=== PATIENT | female | born 1980 | race Hispanic/Latino ===

== ENCOUNTER 2018-02-13 14:19 | Emergency (ER) | payer MEDICAID, OTHER | END 2018-02-13 15:19 | disposition home or self-care (01) | LOC: ERS 14:19 | DX: R04.0 Epistaxis (principal); F41.9 Anxiety disorder, unspecified | CPT/HCPCS: 99283 ==

== ENCOUNTER 2018-06-20 10:18 | Emergency (ER) | payer OTHER ==
[2018-06-20 10:59] LABS: #Eosinphils 0.2 thou/uL (0.0-0.7); #Lymphocytes 1.8 thou/uL (1.20-3.40); #Monocytes 0.5 thou/uL (0.11-0.59); #Neutrophils 3.9 thou/uL (1.40-6.50); %Basophils 0.7 % (0.0-1.0); %Eosinophils 3.4 % (0.0-10.0); %Lymphocytes 28.4 % (21.0-51.0); %Monocytes 7.6 % (0.0-10.0); %Neutrophils 59.9 % (42.0-75.0); Hemoglobin 15.5 g/dL (12.0-16.0); Mean Corpuscular HGB CONC 34.5 g/dL (32.0-36.0); Mean Corpuscular Hemoglobin 31.4 pg (27.0-31.0); Mean Platelet Volume 8.4 fL (7.4-10.4); Platelet Count 225 thou/uL (130-400); RBC Distribution Width 12.3 % (11.5-14.5); Red Blood Cell (RBC) Count 4.93 mill/uL (4.20-5.40); White Blood Cell (WBC) Count 6.4 thou/uL (4.8-10.8)
[2018-06-20 11:19] LABS: ALT (SGPT) 57 U/L (8-55); AST (SGOT) 35 U/L (5-34); Albumin 4.2 g/dL (3.5-5.0); Alkaline Phosphatase 69 U/L (40-150); Anion Gap 12 mmol/L (10-20); BUN (Urea Nitrogen) 9 mg/dL (7.0-18.7); Bilirubin, Total 0.4 mg/dL (0.2-1.2); Calc. Creatinine Clearance 0 mL/min (70-130); Calcium 9.2 mg/dL (7.8-10.44); Carbon Dioxide 20 mmol/L (22-29); Chloride 109 mmol/L (98-107); Estimated GFR-MDRD 66; Globulin 3.2 g/dL (2.4-3.5); Glucose 143 mg/dL (70-105); Lipase 27 U/L (8-78); Potassium 3.6 mmol/L (3.5-5.1); Protein, Total 7.4 g/dL (6.0-8.3); Sodium 137 mmol/L (136-145)
[2018-06-20 11:23] LABS: CKMB 1.3 ng/mL (0-6.6); Troponin I Less than 0.010 ng/mL (< 0.028)
--- NOTE | 2018-06-20 11:33 | RAD ---
PORTABLE CHEST 1 VIEW: Date: 06/20/18 Time: 1050 hours HISTORY: Shortness of breath and chest pain. FINDINGS: The heart size is normal. The lungs are expanded without focal areas of consolidation, pneumothoraces , or pleural effusions. There is suggestion of a granuloma in the right mid lung. IMPRESSION: 1. No acute process. 2. Probable granuloma in right mid lung. Recommend follow-up chest radiograph in [address] CODE T. POS: [facility]
[2018-06-20] MEDS ORDERED: Lidocaine Viscous Sol 2% 15 ml UD Cup ONE (12:04)
[2018-06-20] MEDS ORDERED: Mag-Al 1200 mg/1200 mg/30 ML UDCUP ONE (12:04)
--- NOTE | 2018-06-23 13:25 | EKG ---
Test Reason : Blood Pressure : / mmHG Vent. Rate : 063 BPM Atrial Rate : 063 BPM P-R Int : 124 ms QRS Dur : 090 ms QT Int : 420 ms P-R-T Axes : -24 041 036 degrees QTc Int : 429 ms Normal sinus rhythm Normal ECG Confirmed by YANETH DOBSON ([id number]), supervising film or videotape editor LINCOLN JACOBO ([id number] on 06/23/2018 1:24:26 PM Referred By: Confirmed By:YANETH DOBSON
== END 2018-06-20 13:29 | disposition home or self-care (01) ==
LOC: ERS 10:18
DX: R07.89 Other chest pain (principal); F41.9 Anxiety disorder, unspecified; F17.210 Nicotine dependence, cigarettes, uncomplicated
CPT/HCPCS: 36415; 71045; 80053; 82553; 83690; 84484; 85025; 93005

== ENCOUNTER 2018-10-21 21:52 | Emergency (ER) | payer OTHER ==
[2018-10-21] MEDS ORDERED: Methocarbamol 1 GM in Sodium Chloride 0.9% 250 ML 250 ML IVPB SCH (23:00)
[2018-10-21 23:01] LABS: #Eosinphils 0.5 thou/uL (0.0-0.7); #Lymphocytes 2.4 thou/uL (1.20-3.40); #Monocytes 0.6 thou/uL (0.11-0.59); #Neutrophils 3.5 thou/uL (1.40-6.50); %Basophils 0.7 % (0.0-1.0); %Lymphocytes 33.6 % (21.0-51.0); %Monocytes 9.1 % (0.0-10.0); %Neutrophils 49.6 % (42.0-75.0); Hemoglobin 14.9 g/dL (12.0-16.0); Mean Corpuscular HGB CONC 33.3 g/dL (32.0-36.0); Mean Corpuscular Hemoglobin 30.2 pg (27.0-31.0); Mean Corpuscular Volume 90.9 fL (78.0-98.0); Mean Platelet Volume 8.6 fL (7.4-10.4); Platelet Count 192 thou/uL (130-400); RBC Distribution Width 12.4 % (11.5-14.5); Red Blood Cell (RBC) Count 4.94 mill/uL (4.20-5.40)
[2018-10-21 23:06] LABS: BHCG - Serum Negative (NEGATIVE); Pregs Control Background? CLEAR/WHITE (CLR/WHITE); Pregs Control Bar Appear? YES (CONTROL BAR)
[2018-10-21 23:14] LABS: ALT (SGPT) 83 U/L (8-55); AST (SGOT) 57 U/L (5-34); Albumin 4.1 g/dL (3.5-5.0); Alkaline Phosphatase 80 U/L (40-150); Anion Gap 12 mmol/L (10-20); BUN (Urea Nitrogen) 11 mg/dL (7.0-18.7); Bilirubin, Total 0.4 mg/dL (0.2-1.2); CK (CPK) 156 U/L (29-168); Calc. Creatinine Clearance 0 mL/min (70-130); Carbon Dioxide 24 mmol/L (22-29); Chloride 105 mmol/L (98-107); Estimated GFR-MDRD 71; Globulin 2.9 g/dL (2.4-3.5); Glucose 127 mg/dL (70-105); Potassium 3.8 mmol/L (3.5-5.1); Sodium 137 mmol/L (136-145)
[2018-10-22] MEDS ORDERED: Ketorolac Tromethamine 30 MG/ML VIAL ONE (00:10)
== END 2018-10-22 01:32 | disposition home or self-care (01) ==
LOC: ERS 21:52
DX: M54.5 Low back pain (principal); F41.9 Anxiety disorder, unspecified
CPT/HCPCS: 80053; 82550; 84703; 85025; 96361; 96365; 96366; 96375; J1885; J2800; J7050

== ENCOUNTER 2020-03-05 12:02 | Emergency (ER) | payer OTHER ==
[2020-03-06 14:26] LABS: SARS-CoV-2 MS2 Positive; SARS-CoV-2 N Gene Negative; SARS-CoV-2 S Gene Negative; SARS-CoV-2 orf1ab Negative
== END 2020-03-05 12:57 | disposition home or self-care (01) ==
LOC: ERS 12:02
DX: R09.81 Nasal congestion (principal); R05 Cough; R59.0 Localized enlarged lymph nodes; F41.9 Anxiety disorder, unspecified; Z20.828 Contact with and (suspected) exposure to other viral communicable diseases
CPT/HCPCS: 87635; 99283; U0003

== ENCOUNTER 2020-03-24 11:47 | Emergency (ER) | payer OTHER ==
[2020-03-25 12:50] LABS: SARS-CoV-2 MS2 Positive; SARS-CoV-2 N Gene Positive; SARS-CoV-2 S Gene Positive; SARS-CoV-2 orf1ab Positive
== END 2020-03-24 13:25 | disposition home or self-care (01) ==
LOC: ERS 11:47
DX: U07.1 COVID-19 (principal); F41.9 Anxiety disorder, unspecified
CPT/HCPCS: 87635; 99283; U0003

== ENCOUNTER 2020-04-08 09:27 | Emergency (ER) | payer OTHER ==
[2020-04-08 19:58] LABS: SARS-CoV-2 MS2 Positive; SARS-CoV-2 N Gene Negative; SARS-CoV-2 S Gene Negative; SARS-CoV-2 orf1ab Negative
== END 2020-04-08 10:11 | disposition home or self-care (01) ==
LOC: ERS 09:27
DX: Z20.828 Contact with and (suspected) exposure to other viral communicable diseases (principal); F41.9 Anxiety disorder, unspecified
CPT/HCPCS: 87635; 99283; U0003

== ENCOUNTER 2020-10-20 09:05 | Emergency (ER) | payer OTHER ==
[2020-10-20] MEDS ORDERED: Acetaminophen 500 MG TAB ONE (10:56)
[2020-10-20 14:18] LABS: SARS-CoV-2 PCR by NAA Not Detected (NotDetected)
== END 2020-10-20 11:00 | disposition home or self-care (01) ==
LOC: ERS 09:05
DX: R51.9 Headache, unspecified (principal); R19.7 Diarrhea, unspecified; Z20.822 Contact with and (suspected) exposure to COVID-19
CPT/HCPCS: 87635; 99284; U0003; U0005

== ENCOUNTER 2020-12-02 16:47 | Emergency (ER) | payer OTHER | END 2020-12-02 18:48 | disposition home or self-care (01) | LOC: ERS 16:47 | DX: R51.9 Headache, unspecified (principal); R04.0 Epistaxis | CPT/HCPCS: 99283 ==

== ENCOUNTER 2021-08-09 20:53 | Emergency (ER) | payer OTHER ==
[2021-08-09 21:54] LABS: ALT (SGPT) 28 U/L (8-55); AST (SGOT) 22 U/L (5-34); Alkaline Phosphatase 75 U/L (40-110); Anion Gap 12 mmol/L (10-20); BUN (Urea Nitrogen) 8 mg/dL (7.0-18.7); Bilirubin, Total 0.3 mg/dL (0.2-1.2); Calc. Creatinine Clearance 0 mL/min (70-130); Calcium 8.9 mg/dL (7.8-10.44); Carbon Dioxide 23 mmol/L (22-29); Chloride 107 mmol/L (98-107); Globulin 3.3 g/dL (2.4-3.5); Glucose 99 mg/dL (70-105); Potassium 3.4 mmol/L (3.5-5.1); Protein, Total 7.3 g/dL (6.0-8.3); Sodium 139 mmol/L (136-145)
[2021-08-09] MEDS ORDERED: Aspirin Chewable 81 MG TAB ONE (21:57)
[2021-08-09] MEDS ORDERED: Ketorolac Tromethamine 30 MG/ML VIAL ONE (22:27)
[2021-08-09] MEDS ORDERED: Lidocaine Viscous Sol 2% 15 ml UD Cup ONE (22:27)
[2021-08-09] MEDS ORDERED: Mag-Al 1200 mg/1200 mg/30 ML UDCUP ONE (22:27)
[2021-08-09 22:48] LABS: #Eosinphils 0.5 thou/uL (0.0-0.7); #Lymphocytes 2.1 thou/uL (1.20-3.40); #Monocytes 0.8 thou/uL (0.11-0.59); %Basophils 0.7 % (0.0-1.0); %Eosinophils 8.2 % (0.0-10.0); %Lymphocytes 32.3 % (21.0-51.0); %Monocytes 11.9 % (0.0-10.0); %Neutrophils 46.9 % (42.0-75.0); Anisocytosis MODERATE=16-30 cells (100X) (0-5/hpf); Hemoglobin 8.9 g/dL (12.0-16.0); Hypochromia SLIGHT = 6-15 cells (100X) (0-5/hpf); MDiff Complete? YES; Mean Corpuscular HGB CONC 29.8 g/dL (32.0-36.0); Mean Corpuscular Hemoglobin 19.3 pg (27.0-31.0); Mean Corpuscular Volume 64.7 fL (78.0-98.0); Mean Platelet Volume 6.6 fL (7.4-10.4); Microcytosis SLIGHT = 6-15 cells (100X) (0-5/hpf); Platelet Count 252 thou/uL (130-400); Platelet Morphology Comment Appears Adequate; RBC Distribution Width 19.2 % (11.5-14.5); Red Blood Cell (RBC) Count 4.62 mill/uL (4.20-5.40); Reflex for Review?? YES; White Blood Cell (WBC) Count 6.5 thou/uL (4.8-10.8)
[2021-08-10 00:30] LABS: Troponin I 0.044 ng/mL (< 0.028)
== END 2021-08-10 00:30 | disposition left against medical advice (07) ==
LOC: ERS 20:53
DX: R07.89 Other chest pain (principal); I25.2 Old myocardial infarction; F17.210 Nicotine dependence, cigarettes, uncomplicated
CPT/HCPCS: 36415; 71045; 80053; 83690; 84484; 85025; 85060; 93005; 96372; J1885

== ENCOUNTER 2022-02-04 12:13 | Observation (INO) | payer OTHER ==
[~2022-02-04 12:13] MED LIST: Iopamidol 370 76% 100 ML VIAL ONE
[2022-02-04 13:13] LABS: #Eosinphils 0.1 thou/uL (0.0-0.7); #Monocytes 0.6 thou/uL (0.11-0.59); #Neutrophils 2.8 thou/uL (1.40-6.50); %Basophils 0.8 % (0.0-1.0); %Eosinophils 1.9 % (0.0-10.0); %Lymphocytes 36.5 % (21.0-51.0); %Monocytes 10.1 % (0.0-10.0); %Neutrophils 50.7 % (42.0-75.0); Hemoglobin 8.4 g/dL (12.0-16.0); Mean Corpuscular HGB CONC 28.3 g/dL (32.0-36.0); Mean Corpuscular Hemoglobin 17.8 pg (27.0-31.0); Mean Corpuscular Volume 63.1 fL (78.0-98.0); Mean Platelet Volume 6.2 fL (7.4-10.4); Platelet Count 367 thou/uL (130-400); RBC Distribution Width 20.1 % (11.5-14.5); Red Blood Cell (RBC) Count 4.73 mill/uL (4.20-5.40); White Blood Cell (WBC) Count 5.4 thou/uL (4.8-10.8)
[2022-02-04 13:24] LABS: ALT (SGPT) 41 U/L (8-55); AST (SGOT) 31 U/L (5-34); Albumin 3.9 g/dL (3.5-5.0); Alkaline Phosphatase 82 U/L (40-110); Anion Gap 11 mmol/L (10-20); BUN (Urea Nitrogen) 9 mg/dL (7.0-18.7); Bilirubin, Total 0.4 mg/dL (0.2-1.2); Calc. Creatinine Clearance 0 mL/min (70-130); Carbon Dioxide 22 mmol/L (22-29); Chloride 107 mmol/L (98-107); Globulin 3.9 g/dL (2.4-3.5); Glucose 142 mg/dL (70-105); Potassium 3.6 mmol/L (3.5-5.1); Protein, Total 7.8 g/dL (6.0-8.3); Sodium 136 mmol/L (136-145)
[2022-02-04 13:27] LABS: Anisocytosis SLIGHT = 6-15 cells (100X) (0-5/hpf); Hypochromia SLIGHT = 6-15 cells (100X) (0-5/hpf); MDiff Complete? YES; Microcytosis MODERATE=15-30 cells (100X) (0-5/hpf); Ovalocytes SLIGHT = 2-5 cells (100X) (0-1/hpf); Platelet Morphology Comment Appears Adequate; Reflex for Review?? NO; Stomatocytes SLIGHT = 2-5 cells (100X) (0-1/hpf)
[2022-02-04] MEDS ORDERED: Morphine 4 MG/ML VIAL ONE (13:59)
[2022-02-04] MEDS ORDERED: Ondansetron PF 4 MG/2 ML Vial ONE (13:59)
[2022-02-04 14:09] LABS: BHCG - Serum Negative (NEGATIVE); Pregs Control Background? CLEAR/WHITE (CLR/WHITE); Pregs Control Bar Appear? YES (CONTROL BAR)
[2022-02-04 14:13] LABS: PTT 25.9 sec (22.9-36.1); Prothrombin Time 12.8 sec (12.0-14.7)
[2022-02-04 14:14] LABS: D-Dimer Test 0.71 *mcg/mL (0.27-0.43)
[2022-02-04 14:24] LABS: Acetaminophen Less than 10.0 mcg/mL (10.0-30.0); Alcohol Less than 10 mg/dL (Less than 10); Salicylate Less than 8.0 mg/dL (15.0-30.0)
[2022-02-04] MEDS ORDERED: Aspirin Chewable 81 MG TAB ONE (15:26)
[2022-02-04 15:55] LABS: Amphetamine Not Detected (NotDetected); Barbiturates Screen Not Detected (NotDetected); Benzodiazepine Screen Not Detected (NotDetected); Cocaine Metabolite Screen Not Detected (NotDetected); Methadone Not Detected (NotDetected); Methamphetamine Not Detected (NotDetected); Opiate Screen Detected (NotDetected); Oxycodone Screen Not Detected (NotDetected); Phencyclidine (PCP) Not Detected (NotDetected); THC/Cannabinoid Screen Detected (NotDetected); Tricyclic Screen Not Detected (NotDetected)
[2022-02-04 16:00] LABS: Bacteria/HPF None Seen HPF (None Seen); Bilirubin Negative (Negative); Blood, Urine Negative (Negative); Clarity Clear (Clear); Glucose, Urine (Dipstick) Normal (Negative); Ketone, Urine Negative (Negative); Leukocyte 250 Leu/uL (Negative); Nitrite Negative (Negative); Pregnancy Test - Urine (BHCG) Negative (Negative); Pregu Control Background? CLEAR/WHITE (CLR/WHITE); Pregu Control Bar Appear? YES (CONTROL BAR); Protein, Urine (Dipstick) Negative (Neg-Trace); RBC/HPF 0-3 HPF (0-3); Specific Gravity 1.043 (1.002-1.036); Specific Gravity, Urine 1.043 (1.002-1.036); Squamous Epithelial 0-3 HPF (0-3); Urobilinogen Normal mg/dL (Less than 2); pH, Urine 7.5 (5.0-9.0)
[2022-02-04 16:14] LABS: Troponin I 0.139 ng/mL (< 0.028)
[2022-02-04 16:55] LABS: Lactic Acid 1.8 mmol/L (0.5-2.2)
[2022-02-04] MEDS ORDERED: Enoxaparin Sodium 100 MG/ML SYRINGE ONE (18:40)
[2022-02-04] MEDS ORDERED: Nitroglycerin 0.4 MG TAB (25 Tab Bottle) SL PRN (19:03)
[2022-02-04 19:26] LABS: Troponin I 1.436 ng/mL (< 0.028)
[2022-02-04] MEDS ORDERED: Morphine 2 MG/ML VIAL SLOW IVP PRN (20:11)
[2022-02-04 22:21] LABS: Troponin I 6.824 ng/mL (< 0.028)
[2022-02-04] MEDS: Metoprolol Tartrate 25 MG TAB PO SCH (22:32)
[2022-02-05 01:15] VITALS: BMI 38.6
[2022-02-05 01:37] LABS: SARS-CoV-2 NAA Rapid Test Not Detected (NotDetected)
[2022-02-05 05:22] LABS: Cardiac Risk 3.2 (Less than 4.5)
[2022-02-05 08:34] LABS: Iron 13 ug/dL (50-170); Iron Binding Capacity, Total 363 mcg/dL (265-497)
[2022-02-05] MEDS: Metoprolol Tartrate 25 MG TAB PO SCH (08:35)
[2022-02-05 08:44] LABS: Troponin I 10.019 ng/mL (< 0.028)
[2022-02-05] MEDS ORDERED: Enoxaparin Sodium 100 MG/ML SYRINGE SC SCH (09:00)
[2022-02-05] MEDS ORDERED: Aspirin Chewable 81 MG TAB PO SCH (09:00)
[2022-02-05 12:27] LABS: Critical Call Chem Troponin I RESULT DECREASING
[2022-02-05 12:29] VITALS: BP 111/59; TEMP 98.1
[2022-02-05] MEDS ORDERED: Ferrous Sulfate 325 MG TAB PO SCH (17:00)
[2022-02-05] MEDS ORDERED: Atorvastatin Calcium 40 MG TAB PO SCH (21:00)
[2022-02-06] MEDS ORDERED: Aspirin 81 mg Enteric Coated Tablet PO SCH (09:00)
== END 2022-02-05 16:25 | disposition home or self-care (01) ==
LOC: ERS 12:13 → 2SW 18:28
PROVIDERS: ADMIT Internal Medicine; ATTEND Internal Medicine
DX: I21.4 Non-ST elevation (NSTEMI) myocardial infarction (principal); D50.9 Iron deficiency anemia, unspecified; I28.8 Other diseases of pulmonary vessels; F12.10 Cannabis abuse, uncomplicated; E78.5 Hyperlipidemia, unspecified; I08.1 Rheumatic disorders of both mitral and tricuspid valves; K80.20 Calculus of gallbladder without cholecystitis without obstruction; E66.9 Obesity, unspecified; Z68.38 Body mass index [BMI] 38.0-38.9, adult; Z87.891 Personal history of nicotine dependence; Z91.14 Patient's other noncompliance with medication regimen; Z20.822 Contact with and (suspected) exposure to COVID-19
CPT/HCPCS: 36415; 71045; 71275; 74174; 80053; 80061; 80306; 80307; 81003; 81015; 81025; 82728; 83036; 83540; 83550; 83605; 83735; 84484; 84703; 85025; 85379; 85610; 85730; 93005; 93010; 93306; 94760; 96361; 96365; 96372; 96374; 96375; 96376; G0378; J1650; J2270; J2405; Q9967; U0002

== ENCOUNTER 2022-04-04 19:39 | Observation (INO) | payer OTHER ==
[2022-04-04 20:32] LABS: #Eosinphils 0.4 thou/uL (0.0-0.7); #Monocytes 0.6 thou/uL (0.11-0.59); %Basophils 0.2 % (0.0-1.0); %Eosinophils 5.3 % (0.0-10.0); %Neutrophils 57.6 % (42.0-75.0); Mean Corpuscular Volume 85.7 fL (78.0-98.0); Red Blood Cell (RBC) Count 5.06 mill/uL (4.20-5.40)
[2022-04-04 20:51] LABS: Anion Gap 14 mmol/L (10-20); BUN (Urea Nitrogen) 9 mg/dL (7.0-18.7); Calc. Creatinine Clearance 0 mL/min (70-130); Carbon Dioxide 22 mmol/L (22-29); Chloride 111 mmol/L (98-107); Potassium 3.7 mmol/L (3.5-5.1); Sodium 143 mmol/L (136-145)
[2022-04-04 20:52] LABS: ALT (SGPT) 38 U/L (8-55); AST (SGOT) 30 U/L (5-34); Albumin 4.1 g/dL (3.5-5.0); Alkaline Phosphatase 81 U/L (40-110); Bilirubin, Total 0.2 mg/dL (0.2-1.2); Calcium 9.1 mg/dL (7.8-10.44); Estimated GFR 93; Globulin 3.5 g/dL (2.4-3.5); Glucose 120 mg/dL (70-105); Protein, Total 7.6 g/dL (6.0-8.3)
[2022-04-04 20:54] LABS: Anisocytosis SLIGHT = 6-15 cells (100X) (0-5/hpf); Elliptocytes SLIGHT = 2-5 cells (100X) (0-1/hpf); Eosinophils 3 % (0-10); Hypochromia MODERATE=16-30 cells (100X) (0-5/hpf); Lymphocytes 20 % (21-51); MDiff Complete? YES; Mean Corpuscular HGB CONC 29.9 g/dL (32.0-36.0); Mean Corpuscular Hemoglobin 25.6 pg (27.0-31.0); Mean Platelet Volume 6.1 fL (7.4-10.4); Monocytes 9 % (0-10); Neutrophil 65 % (42-75); Ovalocytes SLIGHT = 2-5 cells (100X) (0-1/hpf); Platelet Count 237 thou/uL (130-400); Platelet Morphology Comment Appears Adequate; Polychromasia SLIGHT = 2-3 cells (100X) (0-2/hpf); RBC Distribution Width 22.8 % (11.5-14.5); Reflex for Review?? NO; Stomatocytes SLIGHT = 2-5 cells (100X) (0-1/hpf); Tear Drops SLIGHT = 2-5 cells (100X) (0-1/hpf)
[2022-04-04] MEDS ORDERED: Ketorolac Tromethamine 30 MG/ML VIAL ONE (21:42)
[2022-04-04] MEDS ORDERED: Ondansetron PF 4 MG/2 ML Vial ONE (21:42)
[2022-04-04] MEDS ORDERED: Aspirin 325 MG TAB ONE (22:12)
[2022-04-04 23:12] LABS: Bilirubin Negative (Negative); Blood, Urine 3+ (Negative); Clarity Extra Turbid (Clear); Glucose, Urine (Dipstick) Normal (Negative); Ketone, Urine Trace mg/dL (Negative); Leukocyte 250 Leu/uL (Negative); Nitrite Negative (Negative); Protein, Urine (Dipstick) 100 mg/dL (Neg-Trace); Specific Gravity, Urine 1.022 (1.002-1.036); pH, Urine 7.5 (5.0-9.0)
[2022-04-04 23:17] LABS: Squamous Epithelial 0-3 HPF (0-3)
[2022-04-04 23:18] LABS: Bacteria/HPF Rare-Few HPF (None Seen); RBC/HPF 21-50 HPF (0-3)
[2022-04-05 03:37] VITALS: BMI 36.6
[2022-04-05] MEDS ORDERED: hydrALAZINE 20 MG/ML VIAL SLOW IVP PRN (03:50)
[2022-04-05] MEDS ORDERED: Ondansetron ODT 4 MG TAB PO PRN (04:35)
[2022-04-05] MEDS ORDERED: Acetaminophen 325 MG TAB PO PRN (04:35)
[2022-04-05 05:17] LABS: Amphetamine Not Detected (NotDetected); Barbiturates Screen Not Detected (NotDetected); Benzodiazepine Screen Not Detected (NotDetected); Cocaine Metabolite Screen Detected (NotDetected); Methadone Not Detected (NotDetected); Methamphetamine Not Detected (NotDetected); Opiate Screen Not Detected (NotDetected); Oxycodone Screen Not Detected (NotDetected); Phencyclidine (PCP) Not Detected (NotDetected); THC/Cannabinoid Screen Detected (NotDetected); Tricyclic Screen Not Detected (NotDetected)
[2022-04-05] MEDS ORDERED: Ferrous Sulfate 325 MG TAB PO SCH (08:00)
[2022-04-05] MEDS ORDERED: Enoxaparin Sodium 40 MG/0.4 ML SYRINGE SC SCH (09:00)
[2022-04-05] MEDS ORDERED: Aspirin 81 mg Enteric Coated Tablet PO SCH (09:00)
[2022-04-05] MEDS ORDERED: Enoxaparin Sodium 40 MG/0.4 ML SYRINGE ONE (09:02)
[2022-04-05] MEDS ORDERED: Aspirin Chewable 81 MG TAB ONE (09:02)
[2022-04-05 14:42] VITALS: BP 139/83; TEMP 98.3
[2022-04-05] MEDS ORDERED: Atorvastatin Calcium 40 MG TAB PO SCH ×2 (21:00)
[2022-04-06] MEDS ORDERED: Aspirin Chewable 81 MG TAB PO SCH (09:00)
== END 2022-04-05 16:45 | disposition home or self-care (01) ==
LOC: ERS 19:39 → ERHOLD 22:59 → NEURO 04-05 13:52
PROVIDERS: ADMIT Student in an Organized Health Care Education/Training Program; ATTEND Student in an Organized Health Care Education/Training Program
DX: R47.01 Aphasia (principal); R53.1 Weakness; R20.2 Paresthesia of skin; I21.4 Non-ST elevation (NSTEMI) myocardial infarction; D50.9 Iron deficiency anemia, unspecified; E66.9 Obesity, unspecified; Z68.36 Body mass index [BMI] 36.0-36.9, adult; Z20.822 Contact with and (suspected) exposure to COVID-19; Z91.14 Patient's other noncompliance with medication regimen
CPT/HCPCS: 36415; 36416; 70450; 70551; 71045; 80053; 80306; 81003; 81015; 83690; 84484; 85025; 93005; 93880; 96372; G0378; J1650; J1885; J2405; U0003; U0005

== ENCOUNTER 2023-08-08 23:45 | Observation (INO) | payer OTHER, SELFPAY ==
[2023-08-09 00:13] LABS: #Basophils 0.1 thou/uL (0.0-0.2); #Eosinphils 0.3 thou/uL (0.0-0.7); #Monocytes 0.9 thou/uL (0.11-0.59); #Neutrophils 4.3 thou/uL (1.40-6.50); %Basophils 0.6 % (0.0-1.0); %Eosinophils 3.5 % (0.0-10.0); %Lymphocytes 31.6 % (21.0-51.0); %Monocytes 11.5 % (0.0-10.0); %Neutrophils 52.7 % (42.0-75.0); Hematocrit 36.3 % (36.0-47.0); Hemoglobin 11.1 g/dL (12.0-16.0); Mean Corpuscular HGB CONC 30.6 g/dL (32.0-36.0); Mean Corpuscular Hemoglobin 23.7 pg (27.0-31.0); Mean Corpuscular Volume 77.4 fl (78.0-98.0); Mean Platelet Volume 10.9 fL (7.4-10.4); Platelet Count 265 10x3/uL (130-400); RBC Distribution Width 17.3 % (11.5-14.5); Red Blood Cell (RBC) Count 4.69 mill/uL (4.20-5.40); White Blood Cell (WBC) Count 8.2 10x3/uL (4.8-10.8)
[2023-08-09 00:28] LABS: ALT (SGPT) 24 U/L (8-55); AST (SGOT) 26 U/L (5-34); Alkaline Phosphatase 80 U/L (40-110); Anion Gap 15 mmol/L (10-20); BUN (Urea Nitrogen) 8 mg/dL (7.0-18.7); Bilirubin, Total 0.3 mg/dL (0.2-1.2); Calc. Creatinine Clearance 0 mL/min (70-130); Calcium 8.6 mg/dL (7.8-10.44); Carbon Dioxide 17 mmol/L (22-29); Chloride 108 mmol/L (98-107); Estimated GFR 95; Globulin 3.4 g/dL (2.4-3.5); Glucose 106 mg/dL (70-105); Potassium 4.1 mmol/L (3.5-5.1); Protein, Total 7.4 g/dL (6.0-8.3); Sodium 136 mmol/L (136-145)
[2023-08-09 00:33] LABS: Troponin I Less than 0.010 ng/mL (< 0.028)
[2023-08-09 00:37] LABS: PTT 25.7 sec (22.9-36.1); Prothrombin Time 13.4 sec (12.0-14.7)
[2023-08-09] MEDS ORDERED: Aspirin 325 MG TAB ONE (01:14)
[2023-08-09 01:50] VITALS: BMI 37.8
[2023-08-09] MEDS ORDERED: Acetaminophen 650 MG Suppository PR PRN (02:16)
[2023-08-09] MEDS ORDERED: Acetaminophen 325 MG TAB PO PRN (02:16)
[2023-08-09] MEDS ORDERED: Ondansetron PF 4 MG/2 ML Vial IVP PRN (02:16)
[2023-08-09] MEDS ORDERED: Ondansetron ODT 4 MG TAB PO PRN (02:16)
[2023-08-09] MEDS ORDERED: hydrALAZINE 20 MG/ML VIAL SLOW IVP PRN (02:24)
[2023-08-09 04:02] LABS: #Eosinphils 0.3 thou/uL (0.0-0.7); #Monocytes 0.8 thou/uL (0.11-0.59); #Neutrophils 3.6 thou/uL (1.40-6.50); %Basophils 0.6 % (0.0-1.0); %Eosinophils 3.7 % (0.0-10.0); %Lymphocytes 33.9 % (21.0-51.0); %Neutrophils 50.5 % (42.0-75.0); Hematocrit 39.4 % (36.0-47.0); Hemoglobin 11.7 g/dL (12.0-16.0); Mean Corpuscular HGB CONC 29.7 g/dL (32.0-36.0); Mean Corpuscular Volume 77.6 fl (78.0-98.0); Mean Platelet Volume 10.9 fL (7.4-10.4); Platelet Count 314 10x3/uL (130-400); RBC Distribution Width 17.5 % (11.5-14.5); Red Blood Cell (RBC) Count 5.08 mill/uL (4.20-5.40); White Blood Cell (WBC) Count 7.1 10x3/uL (4.8-10.8)
[2023-08-09 04:12] LABS: Hemoglobin A1c 5.7 % (4.0-6.0)
[2023-08-09 04:29] LABS: Anion Gap 14 mmol/L (10-20); BUN (Urea Nitrogen) 7 mg/dL (7.0-18.7); Calc. Creatinine Clearance 144 mL/min (70-130); Carbon Dioxide 20 mmol/L (22-29); Cardiac Risk 3.6 (Less than 4.5); Chloride 107 mmol/L (98-107); Cholesterol 190 mg/dl (< 200 Desired); Estimated GFR 93; Glucose 96 mg/dL (70-105); HDL Cholesterol 53 mg/dL (>60 Neg Risk); Iron 27 ug/dL (50-170); Iron Binding Capacity, Total 448 mcg/dL (265-497); LDL Cholesterol, Calculated 113 mg/dL; Potassium 3.9 mmol/L (3.5-5.1); Sodium 137 mmol/L (136-145); Triglycerides 118 mg/dL (Less than 150)
[2023-08-09 09:04] LABS: PTT 25.9 sec (22.9-36.1)
[2023-08-09 09:05] LABS: Prothrombin Time 13.5 sec (12.0-14.7)
[2023-08-09 11:54] LABS: HEX PHOS LA Tube 1 42.4 SEC; Hexagonal Phospholipid Neut 2.4 SEC (0-8.0); Protein C Activity 87 % (78-152)
[2023-08-09 11:56] LABS: D-Dimer Test Less than 0.27 *mcg/mL (0.27-0.43)
[2023-08-09] MEDS ORDERED: FLU VACC QS2023-24(6MOS UP)/PF 60 MCG/0.5 ML SYRINGE IM ONE (15:15)
[2023-08-09] MEDS ORDERED: Atorvastatin Calcium 40 MG TAB PO SCH (21:00)
[2023-08-10 05:31] LABS: Cardiac Risk 3.2 (Less than 4.5)
[2023-08-10 08:57] VITALS: BP 113/68; TEMP 98.4
[2023-08-10] MEDS ORDERED: Aspirin 81 mg Enteric Coated Tablet PO SCH (09:00)
[2023-08-15 16:10] LABS: Cardiolipin IgA Ab 3.4 APL-U/mL (<14 Negative); Cardiolipin IgG Ab 0.8 GPL-U/mL (<10 Negative); EliA APS New Method **** NEW METHOD ****
== END 2023-08-10 11:59 | disposition home or self-care (01) ==
LOC: ERS 23:45 → ERHOLD 08-09 01:10 → 2SE 08-09 14:36
PROVIDERS: ADMIT Student in an Organized Health Care Education/Training Program; ATTEND Internal Medicine
DX: G45.9 Transient cerebral ischemic attack, unspecified (principal); E78.5 Hyperlipidemia, unspecified; I28.9 Disease of pulmonary vessels, unspecified; R47.1 Dysarthria and anarthria; D53.9 Nutritional anemia, unspecified; R13.10 Dysphagia, unspecified; F10.90 Alcohol use, unspecified, uncomplicated; F17.200 Nicotine dependence, unspecified, uncomplicated; D50.9 Iron deficiency anemia, unspecified; E66.9 Obesity, unspecified; Z68.37 Body mass index [BMI] 37.0-37.9, adult; Z79.899 Other long term (current) drug therapy; Z79.82 Long term (current) use of aspirin; Z86.73 Personal history of transient ischemic attack (TIA), and cerebral infarction without residual deficits
CPT/HCPCS: 36415; 36416; 70450; 70496; 70498; 70551; 80048; 80053; 80061; 82728; 83036; 83090; 83540; 83550; 84443; 84484; 85025; 85300; 85303; 85305; 85307; 85379; 85598; 85610; 85730; 86147; 93005; 93306; 94760; G0378; Q9967

== ENCOUNTER 2024-03-18 17:25 | Observation (INO) | payer MEDICAID, SELFPAY ==
[2024-03-18 18:28] LABS: BHCG - Serum Negative (NEGATIVE); Pregs Control Background? CLEAR/WHITE (CLR/WHITE); Pregs Control Bar Appear? YES (CONTROL BAR)
[2024-03-18 18:36] LABS: #Basophils 0.03 10x3/uL (0.0-0.2); %Basophils 0.4 % (0.0-1.0); %Eosinophils 4.9 % (0.0-10.0); %Lymphocytes 26.6 % (21.0-51.0); %Monocytes 11.8 % (0.0-10.0); Hematocrit 29.2 % (36.0-47.0); Mean Corpuscular HGB CONC 27.4 g/dL (32.0-36.0); Mean Corpuscular Hemoglobin 18.2 pg (27.0-31.0); Mean Corpuscular Volume 66.5 fL (78.0-98.0); Platelet Count 328 10x3/uL (130-400); RBC Distribution Width 20.5 % (11.5-14.5); Red Blood Cell (RBC) Count 4.39 mill/uL (4.20-5.40)
[2024-03-18 18:40] LABS: Troponin I 0.015 ng/mL (< 0.028)
[2024-03-18 18:50] LABS: ALT (SGPT) 58 U/L (8-55); AST (SGOT) 38 U/L (5-34); Albumin 3.9 g/dL (3.5-5.0); Alkaline Phosphatase 80 U/L (40-110); Anion Gap 15 mmol/L (10-20); BUN (Urea Nitrogen) 9 mg/dL (7.0-18.7); Bilirubin, Total 0.4 mg/dL (0.2-1.2); Calc. Creatinine Clearance 0 mL/min (70-130); Calcium 8.6 mg/dL (7.8-10.44); Carbon Dioxide 18 mmol/L (22-29); Chloride 109 mmol/L (98-107); Estimated GFR 104; Globulin 3.8 g/dL (2.4-3.5); Glucose 87 mg/dL (70-105); Lipase 22 U/L (8-78); Potassium 3.9 mmol/L (3.5-5.1); Protein, Total 7.7 g/dL (6.0-8.3); Sodium 138 mmol/L (136-145)
[2024-03-18 18:55] LABS: Hypochromia SLIGHT = 6-15 cells HPF (0-5); Microcytosis MODERATE=15-30 cells HPF (0-5); Ovalocytes SLIGHT = 2-5 cells HPF (0-1); Platelet Adequacy Comment Platelets Normal; Polychromasia SLIGHT = 2-3 cells HPF (0-2)
[2024-03-18] MEDS ORDERED: Ondansetron PF 4 MG/2 ML Vial IVP PRN ×2 (21:15→21:18)
[2024-03-18] MEDS ORDERED: Acetaminophen 325 MG TAB PO PRN ×2 (21:15→21:18)
[2024-03-18] MEDS ORDERED: Ondansetron ODT 4 MG TAB SL PRN (21:15)
[2024-03-18] MEDS ORDERED: Ondansetron ODT 4 MG TAB PO PRN (21:18)
[2024-03-18] MEDS ORDERED: Aspirin 325 MG TAB ONE ×2 (21:53→21:57)
[2024-03-18] MEDS ORDERED: hydrALAZINE 20 MG/ML VIAL SLOW IVP PRN (21:54)
[2024-03-18 23:26] VITALS: BMI 39.1
[2024-03-19 04:43] LABS: #Basophils 0.03 10x3/uL (0.0-0.2); %Basophils 0.4 % (0.0-1.0); %Eosinophils 6.3 % (0.0-10.0); %Lymphocytes 31.1 % (21.0-51.0); %Monocytes 12.4 % (0.0-10.0); %Neutrophils 49.4 % (42.0-75.0); Hematocrit 29.4 % (36.0-47.0); Mean Corpuscular HGB CONC 27.2 g/dL (32.0-36.0); Mean Corpuscular Hemoglobin 17.7 pg (27.0-31.0); Platelet Count 284 10x3/uL (130-400); RBC Distribution Width 20.6 % (11.5-14.5); Red Blood Cell (RBC) Count 4.52 mill/uL (4.20-5.40)
[2024-03-19 05:02] LABS: Anion Gap 12 mmol/L (10-20); BUN (Urea Nitrogen) 7 mg/dL (7.0-18.7); Calc. Creatinine Clearance 166 mL/min (70-130); Calcium 8.6 mg/dL (7.8-10.44); Carbon Dioxide 20 mmol/L (22-29); Cardiac Risk 3.6 (Less than 4.5); Chloride 110 mmol/L (98-107); Cholesterol 138 mg/dl (< 200 Desired); Estimated GFR 107; Glucose 97 mg/dL (70-105); HDL Cholesterol 38 mg/dL (>60 Neg Risk); Iron 20 ug/dL (50-170); Iron Binding Capacity, Total 414 mcg/dL (265-497); LDL Cholesterol, Calculated 84 mg/dL; Magnesium 2.2 mg/dL (1.6-2.6); Potassium 3.7 mmol/L (3.5-5.1); Sodium 138 mmol/L (136-145); Triglycerides 79 mg/dL (Less than 150)
[2024-03-19] MEDS ORDERED: Aspirin 325 MG TAB PO SCH (08:00)
[2024-03-19] MEDS: Aspirin 81 mg Enteric Coated Tablet PO SCH (11:14)
[2024-03-19 11:56] LABS: Amphetamine Not Detected (NotDetected); Barbiturates Screen Not Detected (NotDetected); Benzodiazepine Screen Not Detected (NotDetected); Cocaine Metabolite Screen Detected (NotDetected); Methadone Not Detected (NotDetected); Methamphetamine Not Detected (NotDetected); Opiate Screen Not Detected (NotDetected); Oxycodone Screen Not Detected (NotDetected); Phencyclidine (PCP) Not Detected (NotDetected); THC/Cannabinoid Screen Not Detected (NotDetected); Tricyclic Screen Not Detected (NotDetected)
[2024-03-19] MEDS: Atorvastatin Calcium 40 MG TAB PO SCH (21:15)
[2024-03-20 13:41] VITALS: BP 119/67; TEMP 98
== END 2024-03-20 15:45 | disposition home or self-care (01) ==
LOC: ERS 17:25 → 2NO 20:59 → ERS 22:21
PROVIDERS: ADMIT Student in an Organized Health Care Education/Training Program; ATTEND Family Medicine
PROC: B246ZZZ Ultrasonography of Right and Left Heart (ICD-10-PCS; principal; 2024-03-18)
DX: G45.9 Transient cerebral ischemic attack, unspecified (principal); R42 Dizziness and giddiness; H53.8 Other visual disturbances; R20.2 Paresthesia of skin; E78.5 Hyperlipidemia, unspecified; F17.200 Nicotine dependence, unspecified, uncomplicated; F10.10 Alcohol abuse, uncomplicated; F14.10 Cocaine abuse, uncomplicated; Y90.9 Presence of alcohol in blood, level not specified; Z79.82 Long term (current) use of aspirin; Z79.899 Other long term (current) drug therapy
CPT/HCPCS: 70450; 70551; 80048; 80053; 80061; 80306; 82728; 83036; 83540; 83550; 83605; 83690; 83735; 84443; 84484; 84703; 85025; 93005; 93306